=== PATIENT | male | born 1935 | race Caucasian/White ===

== ENCOUNTER 2020-12-18 02:41 | Inpatient (IN) | payer OTHER, MEDICARE ==
[2020-12-18] VITALS (9 sets, daily range): BP systolic 150–218; BP diastolic 62–99
[~2020-12-18] VITALS: Ht 165.1 cm; Wt 61.1 kg
[2020-12-18 05:22] LABS: HEMATOCRIT 26.8 % (42.0-52.0); HEMOGLOBIN 9.1 gm/dL (14.0-18.0); MCH 34.4 pg (26.0-34.0); MCHC 33.8 g/dL (28.0-37.0); MCV 101.8 fL (80.0-100.0); RBC 2.63 mil/uL (4.50-6.00); RDW 16.9 % (10.5-14.5); WBC 10.4 thou/uL (4.0-11.0)
[2020-12-18 05:24] LABS: CREATININE 3.7 mg/dL (0.7-1.3); POTASSIUM 5.5 mmol/L (3.5-5.1)
[2020-12-18 05:29] LABS: ALBUMIN 2.9 g/dL (3.4-5.0); TOTAL BILIRUBIN 0.8 mg/dL (0.2-1.0)
[2020-12-18 05:30] LABS: INR 1.01
[2020-12-18 05:46] LABS: CHOLESTEROL 125 mg/dL (<200); HDL CHOLESTEROL 74 mg/dL (>40); LDL CHOLESTEROL 42 mg/dL (<100); TC:HDL 1.7 Ratio (Not establshd); TRIGLYCERIDE 45 mg/dL (<150); VLDL 9 mg/dL (<40)
[2020-12-18 05:50] LABS: SERUM ASSESSMENT Clear
--- NOTE | 2020-12-18 08:41 | NUR ---
PT ADMITTED TO ROOM 209, FROM [facility] FOR NSTEMI AND CHF, PT IS AWAKE, ALERT AND ORIENTEDX4, DENIES CP, VERY SOB WITH ACTIVITY, HOB ELEVATED AT ALL TIME, SR ON TELE, ADMISSION ASSESSMENT, HX AND EDUCATION COMPLETED, ASSESSMENTS CHARTED, BP ELEVATED, METOPROLOL GIVEN, OTHER VSS, ON 3L NC O2SAT AT 100% NO EVENTS PASSED ON REPORT TO DAY NURSE
--- NOTE | 2020-12-18 15:00 | 2DMMODE ---
[facility] [address] [place] [address] 2 D/M-MODE ECHOCARDIOGRAM Name: SHIVA BARRON Room #: 209-P ADM IN M.R.#: [id number] Admission: 12/18/20 Attend Phys: Ricardo Preston MD Discharge: Date of : 34 Report #: [id number] THIS REPORT FOR: cc: Tomer Silverio MD, Brian MD Lammoglia, Francisco J. MD ~ APPROVED REPORT Study performed: 12/18/2020 13:04:05 EXAM: Comprehensive 2D, Doppler, and color-flow Echocardiogram Patient Location: Bedside Room #: 209 Status: routine BSA: 1.71 HR: 74 bpm BP: 179/86 mmHg Rhythm: NSR Other Information Study Quality: Technically Limited Indications Congestive Heart Failure COPD Cardiomyopathy Hypertension/HDD 2D Dimensions IVC: 2545.00 mm Volumes Left Atrial Volume (Systole) Single Plane 4CH: 61.38 mL Single Plane 2CH: 74.50 mL Aortic Valve AoV Peak Domingo.: 1.97 m/s AO Peak Gr.: 15.57 mmHg LVOT Max P.81 mmHg LVOT Max V: 0.98 m/s Mitral Valve E/A Ratio: 0.5 MV Decel. Time: 348.36 ms MV E Max Domingo.: 0.58 m/s [facility] [address] [place] [address] 2 D/M-MODE ECHOCARDIOGRAM Name: ANDERSONSHIVA Holly Room #: 209-P ADM IN M.R.#: [id number] Admission: 12/18/20 Attend Phys: Ricardo Preston MD Discharge: Date of : 34 Report #: [id number] MV A Domingo.: 1.09 m/s MV PHT: 101.02 ms IVRT: 161.48 ms Pulmonary Valve PV Peak Domingo.: 1.06 m/s PV Peak Gr.: 4.47 mmHg Pulmonary Vein P Vein S: 0.44 m/s P Vein A: 0.37 m/s P Vein D: 0.36 m/s P Vein A Dur.: 110.7 msec P Vein S/D Ratio: 1.22 Left Ventricle Left ventricle is at the upper limits of normal. There is global hypokinesis of the left ventricle. There is normal left ventricular wall thickness. Left ventricular systolic function is mild to moderately decreased. LVEF is 40%. This study is not technically sufficient to allow evaluation of the LV diastolic function. Right Ventricle The right ventricle is normal size. The right ventricular systolic function is normal. Atria Left atrium is dilated. Right atrium is dilated. Aortic Valve The aortic valve is normal in structure. The Aortic valve is sclerotic. Trace aortic regurgitation. There is no aortic valvular stenosis. Mitral Valve The mitral valve is normal in structure. Mild to moderate mitral regurgitation. No evidence of mitral valve stenosis. Tricuspid Valve The tricuspid valve is normal in structure. Mild tricuspid regurgitation. Unable to assess PA pressure. Pulmonic Valve The pulmonary valve is normal in structure. There is no pulmonic valvular regurgitation. Great Vessels The aortic root is normal in size. IVC is dilated. [facility] [address] [address] 2 D/M-MODE ECHOCARDIOGRAM Name: SHIVA BARRON Holly Room #: 209-P [facility] IN [facility]#: [id number] Admission: 12/18/20 Attend Phys: Ricardo Preston MD Discharge: Date of : 34 Report #: [id number] Pericardium There is no pericardial effusion. <Conclusion> Left ventricle is at the upper limits of normal. There is global hypokinesis of the left ventricle. LVEF is 40%. The right ventricle is normal size. Left atrium is dilated. Right atrium is dilated. The aortic valve is normal in structure. The Aortic valve is sclerotic. Trace aortic regurgitation. The mitral valve is normal in structure. Mild to moderate mitral regurgitation. The tricuspid valve is normal in structure. The pulmonary valve is normal in structure. The aortic root is normal in size. There is no pericardial effusion. <ELECTRONICALLY SIGNED> By: Seun Starkey MD 12/18/20 1500 1500 Cristina Starkey MD /INF
--- NOTE | 2020-12-18 18:26 | NUR ---
PT IS AXOX4, PLEASANT; VS SBP 170-180s, AFEBRILE, SR ON THE MONITOR. DR KEE CONSULTED. RECEIVED PT ON HEPARIN GTT AT 12.3U/KG/HR. PT HAS BEEN EDEMATOUS BLE AND LUE. CONTINUES TO BE ORTHOPNIC. CARDIOLOGY CONSULTED. ECHO COMPLETED THIS AM. POC IS TO CONTINUE TO MONITOR VSS; BP CONTINUED TO BE ELEVATED THROUGHOUT THE DAY. DR THOMPSON CONSULTED FOR RX CLONIDINE. HEPARIN GTT D/C. FALL PRECAUTIONS IN PLACE. CALL LIGHT AND NEEDS WITHIN REACH. NO CONCERNS THIS TIME.
[2020-12-19 00:04] VITALS: BP 185/90
[2020-12-19 05:09] LABS: HEMATOCRIT 22.8 % (42.0-52.0); HEMOGLOBIN 7.7 gm/dL (14.0-18.0); MCH 34.2 pg (26.0-34.0); MCHC 33.9 g/dL (28.0-37.0); RBC 2.26 mil/uL (4.50-6.00); RDW 16.4 % (10.5-14.5); WBC 9.3 thou/uL (4.0-11.0)
[2020-12-19 05:50] VITALS: BP 148/61
[2020-12-19 05:55] LABS: CALCIUM 7.9 mg/dL (8.5-10.1); POTASSIUM 5.1 mmol/L (3.5-5.1)
[2020-12-19 07:40] VITALS: BP 153/62
--- NOTE | 2020-12-19 10:11 | NUR ---
Assumed care of pt this AM. Pt is A&O x4, denies any chest pain. Received pt on 3L NC, down to 2L with no reports of increased SOA. Pt is SR w/ 1AVB on the monitor. Given medications as ordered with attn to controlling BP. Nurse to collect stool sample for occult bld if pt able to give specimen today. Will continue to assess pts needs throughout the day.
[2020-12-19 11:00] VITALS: BP 111/45
[2020-12-19 15:26] VITALS: BP 155/63
[2020-12-19 19:21] VITALS: BP 130/50
[2020-12-20] VITALS: BP 148/66
--- NOTE | 2020-12-20 02:24 | NUR ---
TODAY THIS PT HAS BEEN NSR ON THE HEART MONITOR IN THE 60S WITH NO STATED PAIN AND STABLE VS. HE HAS BEEN ASLEEP FOR MOST OF THE NIGHT WHILE USING THE URINAL AT THE BEDSIDE. HE HAS HIS HEARING AIDS CHARGING AT THE MOMENT.
[2020-12-20 02:39] LABS: HEMATOCRIT 21.2 % (42.0-52.0); HEMOGLOBIN 7.1 gm/dL (14.0-18.0); MCH 33.7 pg (26.0-34.0); MCHC 33.5 g/dL (28.0-37.0); MCV 100.7 fL (80.0-100.0); RBC 2.11 mil/uL (4.50-6.00); RDW 16.3 % (10.5-14.5); WBC 6.3 thou/uL (4.0-11.0)
[2020-12-20 03:10] LABS: CALCIUM 7.7 mg/dL (8.5-10.1); CREATININE 4.3 mg/dL (0.7-1.3); POTASSIUM 5.2 mmol/L (3.5-5.1)
[2020-12-20 05:50] VITALS: BP 150/82
[2020-12-20 08:10] VITALS: BP 170/64
[2020-12-20 12:00] VITALS: BP 119/64
--- NOTE | 2020-12-20 12:14 | EKG ---
[address] [place] [address] ELECTROCARDIOGRAM REPORT Name: SHIVA BARRON Room #: 209-[facility] IN [facility]#: [id number] Admission: 12/18/20 Attend Phys: Ricardo Preston MD Discharge: Date of : 34 Report #: [id number] [facility] Test Date: 2020-12-18 Test Time: 08:37:02 Pat Name: SHIVA BARRON Department: Room: 209 Gender: M Community Mental Health Worker: BLOSSOM : 1935 Requested By: Ricardo Preston Order Number: [id number] MD: Jose Bartlett Measurements Intervals [place] Rate: 72 P: 31 ID: 188 QRS: -31 QRSD: 126 T: -18 QT: 419 QTc: 459 Interpretive Statements Sinus rhythm Poor R wave progression Nonspecific intraventricular conduction delay Compared to ECG 12/18/2020 08:34:10 No significant changes found Electronically Signed On 12-20-2020 12:14:33 CDT by Jose Bartlett [email or web address] <ELECTRONICALLY SIGNED> By: Jose Bartlett MD, [facility] 12/20/20 1214 0837 0837 Jose Bartlett MD, [facility] /EPI
--- NOTE | 2020-12-20 12:14 | EKG ---
[address] [place] [address] ELECTROCARDIOGRAM REPORT Name: SHIVA BARRON Room #: 209-[facility] IN [facility].#: [id number] Admission: 12/18/20 Attend Phys: Ricardo Preston MD Discharge: Date of : 34 Report #: [id number] [facility] Test Date: 2020-12-18 Test Time: 08:34:10 Pat Name: SHIVA GOLDMANANDERSON Department: Room: 209 Gender: M Store Protection Specialist: BLOSSOM : 1935 Requested By: Deedee Delgado Order Number: [id number] MD: Jose Bartlett Measurements Intervals [place] Rate: 73 P: 32 GA: 187 QRS: -31 QRSD: 129 T: -15 QT: 422 QTc: 465 Interpretive Statements Sinus rhythm Poor R wave progression Nonspecific T wave abnormality Nonspecific intraventricular conduction delay No previous ECG available for comparison Electronically Signed On 12-20-2020 12:14:03 CDT by Jose Bartlett [email or web address] <ELECTRONICALLY SIGNED> By: Jose Bartlett MD, [facility] 12/20/20 1214 3 3 Jose Bartlett MD, [facility] /EPI
[2020-12-20 16:20] VITALS: BP 149/51
--- NOTE | 2020-12-20 17:30 | NUR ---
Met with patient who resides in independent home with . Patient reports ramp entry to back of home. 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 He has home oxygen via [employer] [facility] at 3 Liters. Patients with prec sx on legs and macular degeration. He reports she cannot see well. He drives but short distances. He reports can care for self while he is in hospital. Has a hx of for [facility] health care. Patient plans home independently. His son lives in area and helps parent when he is able but he also runs a business. [facility] following
[2020-12-20 19:57] VITALS: BP 150/61
[2020-12-20] MEDS ORDERED: IRBESARTAN300 MG PO (21:55)
[2020-12-20] MEDS ORDERED: ZOCOR 20 MG TAB20 M1 PO (21:56)
[2020-12-20] MEDS ORDERED: CARVEDILOL25 MG PO (21:56)
[2020-12-20] MEDS ORDERED: PROAIR HFA8.5 GM INH (21:57)
[2020-12-20] MEDS ORDERED: ADVAIR 250-501 EACH INH (21:57)
[2020-12-20] MEDS ORDERED: COZAAR 25 MG TA25 M1 PO (21:58)
[2020-12-20] MEDS ORDERED: ALLOPURINOL 10100 M3 PO (21:58)
[2020-12-20] MEDS ORDERED: HYDRALAZINE 5050 MG PO (22:00)
[2020-12-21 04:20] LABS: HEMATOCRIT 23.3 % (42.0-52.0); HEMOGLOBIN 7.9 gm/dL (14.0-18.0); MCH 34.5 pg (26.0-34.0); MCHC 34.1 g/dL (28.0-37.0); MCV 101.2 fL (80.0-100.0); RBC 2.3 mil/uL (4.50-6.00); RDW 16.2 % (10.5-14.5); WBC 6.6 thou/uL (4.0-11.0)
[2020-12-21 04:50] VITALS: BP 145/68
[2020-12-21 05:03] LABS: CALCIUM 8.2 mg/dL (8.5-10.1); POTASSIUM 5.7 mmol/L (3.5-5.1)
[2020-12-21 07:55] VITALS: BP 178/77
--- NOTE | 2020-12-21 08:43 | NUR ---
UPON SHIFT ASSESSMENT, PT AOX4, HARD OF HEARING, HEARING AIDES IN PLACE. PT DENIES PAIN. PT REPORTS SOB WITH EXERTION AND INTERMITTENTLY AT REST WHILE ON 3L O2 VIA NC, NO DESATURATIONS NOTED. PT TOLERATING PO INTAKE OF FLUIDS AND HEART HEALTHY, 2GM SODIUM DIET WITHOUT ISSUE. PT WITHOUT NAUSEA OR EMESIS. PT VOIDING PER URINAL, AMBULATES WITH X1 ASSIST TO CHAIR AND BATHROOM. FREQUENT REPOSITIONING ENCOURAGED WHILE IN BED, PT NOTED TO SHIFT INDEPENDENTLY. SENSATION INTACT, CAPILLARY REFILL LESS THAN 3SEC, PERIPHERAL PULSES PALPABLE IN BUE, FAINT IN BLE. +1 PITTING EDEMA NOTED TO RLE. +3 PITTING EDEMA NOTED TO LLE. PT ENCOURAGED TO NOTIFY STAFF FOR ALL NEEDS, CALL LIGHT WITHIN REACH, BED ALARM ON, BED LOCKED IN LOWEST POSITION, FREQUENT MONITORING WILL CONTINUE.
[2020-12-21 12:10] VITALS: BP 133/61
[2020-12-21 16:20] VITALS: BP 141/60
[2020-12-21 19:30] VITALS: BP 133/52
[2020-12-22] VITALS (8 sets, daily range): BP systolic 121–169; BP diastolic 52–82
[2020-12-22 03:35] LABS: WBC 5.1 thou/uL (4.0-11.0)
[2020-12-22 03:39] LABS: HEMOGLOBIN 6.9 gm/dL (14.0-18.0); MCH 34.5 pg (26.0-34.0); MCHC 34.2 g/dL (28.0-37.0); MCV 100.7 fL (80.0-100.0); RBC 1.99 mil/uL (4.50-6.00)
[2020-12-22 03:50] LABS: CALCIUM 7.9 mg/dL (8.5-10.1); CREATININE 5.2 mg/dL (0.7-1.3); POTASSIUM 5.3 mmol/L (3.5-5.1)
--- NOTE | 2020-12-22 05:29 | NUR ---
ASSUMED PT CARE AT 0100, PT IS SLEEPING, DENIES PAIN OR SOB, REMAINS ON 3L NC, ASSESSMENTS CHARTED, HGB 6.9 THIS AM, SENIOR PARTNER NOTIFIED, NO NEW ORDERS RECEIVED AT THIS TIME, WILL PASS ON REPORT, NO NEEDS AT THIS TIME WILL CONTINUE TO MONITOR
[2020-12-22 12:14] LABS: % SATURATION 30 % (20-39); IRON 51 ug/dL (65-175); TIBC 172 ug/dL (250-450)
[2020-12-23 04:14] VITALS: BP 148/61
[2020-12-23 04:23] LABS: HEMOGLOBIN 7.9 gm/dL (14.0-18.0); MCH 33.9 pg (26.0-34.0); MCHC 34.2 g/dL (28.0-37.0); MCV 99.1 fL (80.0-100.0); RBC 2.32 mil/uL (4.50-6.00); RDW 16.8 % (10.5-14.5); WBC 5.1 thou/uL (4.0-11.0)
[2020-12-23 04:35] LABS: CALCIUM 7.9 mg/dL (8.5-10.1); CREATININE 5.4 mg/dL (0.7-1.3); POTASSIUM 5.5 mmol/L (3.5-5.1)
--- NOTE | 2020-12-23 04:36 | NUR ---
RECEIVED PATIENT ALERT AND ORIENTED X4.ON NASAL CANNULA AT 3LPM, SATURATING WELL.SINUS RYTHM ON THE MONITOR.ON ONGOING 1 UNIT OF PRBC TRANSFUSION COMPLETED AT 8PM, NO TRANSFUSION REACTION NOTED.ALL NEEDS ATTENDED.NO COMPLAINTS OF PAIN THROUGHOUT THE SHIFT.
[2020-12-23 05:50] VITALS: BP 145/61
[2020-12-23 08:00] VITALS: BP 178/75
[2020-12-23 12:00] VITALS: BP 147/66
[2020-12-23 16:00] VITALS: BP 159/63
[2020-12-23 20:40] VITALS: BP 169/81
[2020-12-24 03:17] VITALS: BP 163/90
[2020-12-24 05:34] LABS: HEMATOCRIT 25.5 % (42.0-52.0); HEMOGLOBIN 8.6 gm/dL (14.0-18.0); MCH 33.5 pg (26.0-34.0); MCHC 33.8 g/dL (28.0-37.0); MCV 99.1 fL (80.0-100.0); RBC 2.57 mil/uL (4.50-6.00); RDW 16.2 % (10.5-14.5); WBC 5.9 thou/uL (4.0-11.0)
--- NOTE | 2020-12-24 05:43 | NUR ---
ASSUME CARE 1900. PT/VITALS STABLE. BP RUNSHIGH AT TIMES. PT ON HYDRALAZINE TO MANAGE BP. MODERATE TOLERANCE TO ACTIVITY. ASSESSMENTS CHRTED. PROGRESSING MODERATELY WITH POC. PLAN IS FOR POSSIBLE EGD TODAY TO INVESTIGATE FURTHER BLEEDING. URINE OUTPUT VERY LOW. COMMUNICTED TO PIPER INSTALLER. STARTED ON NS AT 75ML/HR X 1 BAG. WILL CONTINUE TO MONITOR AND FOLLOW WITH POC
[2020-12-24 06:31] LABS: ALBUMIN 2.4 g/dL (3.4-5.0); CALCIUM 7.6 mg/dL (8.5-10.1); PHOSPHORUS 4.7 mg/dL (2.5-4.9); POTASSIUM 4.9 mmol/L (3.5-5.1)
[2020-12-24 08:05] VITALS: BP 194/113
[2020-12-24 11:05] VITALS: BP 106/57
[2020-12-24 13:18] LABS: BE(vivo) -6.7 mmol/L (-2 to +3); HCO3 17.9 mmol/L (22.0-26.0); PCO2 32.1 mmHg (35.0-45.0); pH 7.363 (7.360-7.450); sO2 94.6 % (92.0-98.0)
[2020-12-24 14:07] VITALS: BP 137/65
[2020-12-24 15:30] VITALS: BP 132/58
--- NOTE | 2020-12-24 17:53 | NUR ---
ASSUMED CARE SHIFT CHANGE. UPON RECEIVING PT, PT WAS IN RESP DISTRESS WITH LUNGS SOUNDING WET. OPTICIAN NOTIFIED ORDERS RECEIVED. LASIX GIVEN WITH RELIEF, LASIX GTT CONTINUES PER ORDERS. PT BREATHING MUCH BETTER AND PT IS COMFORTABLE. PULM CONSULTED REFER TO NOTE. PT REMAINS ON 4L O2. VSS- BP ELEVATED THIS AM, STABLE NOW. FAMILY UPDATED ON POC. CESAR PLACED WITH GOOD URINE OUTPUT. PT SEEN BY SPEECH, DIET ALTERED. PT DENIES CURRENT NEEDS. CONT POC, WILL PASS REPORT TO NOC RN.
[2020-12-24 20:00] VITALS: BP 151/61
[2020-12-25 03:42] LABS: HEMATOCRIT 25.4 % (42.0-52.0); HEMOGLOBIN 8.7 gm/dL (14.0-18.0); MCH 33.7 pg (26.0-34.0); MCHC 34.2 g/dL (28.0-37.0); MCV 98.7 fL (80.0-100.0); RBC 2.57 mil/uL (4.50-6.00); RDW 15.8 % (10.5-14.5); WBC 6.3 thou/uL (4.0-11.0)
[2020-12-25 05:42] LABS: ALBUMIN 2.5 g/dL (3.4-5.0); CALCIUM 8.4 mg/dL (8.5-10.1); CREATININE 5.4 mg/dL (0.7-1.3); PHOSPHORUS 4.3 mg/dL (2.5-4.9); POTASSIUM 4.9 mmol/L (3.5-5.1)
[2020-12-25 05:55] VITALS: BP 151/89
[2020-12-25 07:19] VITALS: BP 141/82
--- NOTE | 2020-12-25 07:39 | NUR ---
Pt slept well this shift. Oriented but forgetful. Hard of hearing. Lasix drip per emar. Albert for voiding. Fall precaution in place. [place] thick liquid. Call light within reach. Nursing to continue to monitor.
--- NOTE | 2020-12-25 09:38 | NUR ---
Assess for length of stay. Advanced age 85, admit with CHF, fluid overload, cardiomyopathy. CKD and renal is managing diuresis with iv lasix. Wt down [address] follows due to aspiration risk and pt requires modified diet with swallow precautions. Intake is 90-100% meals. Physician has indicated protein calorie malnutrition: RD defer. Low nutrition risk.
[2020-12-25 11:05] VITALS: BP 158/74
--- NOTE | 2020-12-25 12:36 | NUR ---
Assumed care of pt this AM. Pt is A&O x4. SR on the monitor. Currently on 4L NC. Still on Lasix drip w/ shirley in place. Will continue to monitor pt needs throuhgout the day.
[2020-12-25 15:06] VITALS: BP 113/60
--- NOTE | 2020-12-25 16:30 | NUR ---
Ana not stable for discharge. Discussed with patient HH at tx. he is agreeable to referral of [facility] which he has used in past.
[2020-12-25 19:49] VITALS: BP 137/69
[2020-12-26 02:54] LABS: ALBUMIN 2.5 g/dL (3.4-5.0); CALCIUM 8.2 mg/dL (8.5-10.1); CREATININE 5.7 mg/dL (0.7-1.3); PHOSPHORUS 4.9 mg/dL (2.5-4.9); POTASSIUM 4.6 mmol/L (3.5-5.1)
--- NOTE | 2020-12-26 03:29 | NUR ---
RECIEVED THE PATIENT ALERT AND ORIENTEDX4.ON OXYGEN SUPPORT VIA NASAL CANNULA SATURATING WELL.ON LASIX INFUSION AT 20MG/HR.NOT IN PAIN OR DISTRESS.ALL NEEDS ATTENDED.FOR CONTINOUS MONITORING AND CARE.
[2020-12-26 04:50] VITALS: BP 136/69
[2020-12-26 07:22] VITALS: BP 134/82
[2020-12-26 11:02] VITALS: BP 114/63
[2020-12-26 15:03] VITALS: BP 95/53
--- NOTE | 2020-12-26 18:20 | NUR ---
Assumed care of pt this AM. Pt is A&O x4, 3L NC which is baseline. Pt remains on Lasix gtt @ 10mL/hr (20mg). Pt in fluid deficit at shift change. Pt is up x1 w/ walker & gait belt. SA BBB on monitor. Pt possibily d/c'ing tomorrow w/ HH if nephro gives the okay to d/c gtt.
[2020-12-26 19:26] VITALS: BP 115/68
--- NOTE | 2020-12-27 02:39 | NUR ---
PT IS ALERT AND ORIENTED X4. PT IS CONGESTED WITH A COUGH NOTED. LUNGS ARE COARSE TO CRACKLES. ON A LASIX DRIP INFUSING WITHOUT DIFFICULTY. ON 3 LITERS NASAL CANULA.CESAR TO DD . PT WAS UP TO THE CHAIR UPON ARIVAL TO UNIT. ASKING IF HE IS GOING TO REHAB AT SOME POINT. ONGOING NURISNG CARE AND CALL LIGHT WITHIN REACH IF NEEDS ASSISTANCE PER NURSING
[2020-12-27 04:34] VITALS: BP 120/76
[2020-12-27 04:47] LABS: HEMATOCRIT 25.2 % (42.0-52.0); HEMOGLOBIN 8.8 gm/dL (14.0-18.0); MCH 34.1 pg (26.0-34.0); MCHC 34.7 g/dL (28.0-37.0); MCV 98.4 fL (80.0-100.0); RBC 2.56 mil/uL (4.50-6.00); RDW 15.3 % (10.5-14.5); WBC 8.7 thou/uL (4.0-11.0)
[2020-12-27 05:04] LABS: ALBUMIN 2.3 g/dL (3.4-5.0); CALCIUM 7.8 mg/dL (8.5-10.1); CREATININE 6.2 mg/dL (0.7-1.3); PHOSPHORUS 5.4 mg/dL (2.5-4.9); POTASSIUM 4.8 mmol/L (3.5-5.1)
[2020-12-27 07:30] VITALS: BP 132/80
[2020-12-27 11:30] VITALS: BP 118/61
[2020-12-27] MEDS ORDERED: IPRAT-ALBUT 0.5-3 ML INH (15:26)
[2020-12-27] MEDS ORDERED: HYDRALAZINE 5050 MG PO (15:26)
[2020-12-27] MEDS ORDERED: CLONIDINE HCL0.3 M3 PO (15:26)
[2020-12-27] MEDS ORDERED: BAYER CHEWABLE81 MG PO (15:27)
[2020-12-27] MEDS ORDERED: IMDUR 60 MG TAB60 M1 PO (15:27)
[2020-12-27] MEDS ORDERED: PREDNISONE 10 M10 M1 PO (15:28)
[2020-12-27] MEDS ORDERED: TORSEMIDE20 MG PO (15:28)
[2020-12-27] MEDS ORDERED: VELTASSA8.4 GM PO (15:28)
[2020-12-27] MEDS ORDERED: PROTONIX40 M2 PO (15:29)
[2020-12-27 15:30] VITALS: BP 123/73
--- NOTE | 2020-12-27 15:49 | NUR ---
Pt and son expressed concerns to the care team about pt going home with [facility] today and would like to consider acute rehab stay. [facility] eval requested along with therapy evals. [facility] has accepted the pt and they have a bed for him this evening. All parties are agreeable. Dc to acute rehab. Pt will likely need hh referral when dc'd home from rehab.[facility] cm to follow.
[2020-12-27 19:46] VITALS: BP 114/56
--- NOTE | 2020-12-27 19:54 | NUR ---
Transfer to rehab note( end shift note) Uneventful shift , pt discharge is adequate for rehab, pt stated verbal understanding of the overall process. Stable, transfered by [facility] by staff to rehab.
== END 2020-12-27 20:29 | DRG 280 ==
LOC: 2N 02:41
PROVIDERS: Hospitalist; Internal Medicine Nephrology; Internal Medicine Pulmonary Disease; Nurse Practitioner; Nurse Practitioner Family; ADMIT Hospitalist; ATTEND Hospitalist
PROC: 30233N1 Transfusion of Nonautologous Red Blood Cells into Peripheral Vein, Percutaneous Approach (ICD-10-PCS; principal; 2020-12-22)
DX: I21.4 Non-ST elevation (NSTEMI) myocardial infarction (principal); I50.23 Acute on chronic systolic (congestive) heart failure; N17.9 Acute kidney failure, unspecified; I13.0 Hypertensive heart and chronic kidney disease with heart failure and stage 1 through stage 4 chronic kidney disease, or unspecified chronic kidney disease; N18.5 Chronic kidney disease, stage 5; E46 Unspecified protein-calorie malnutrition; J81.1 Chronic pulmonary edema; I25.5 Ischemic cardiomyopathy; I25.10 Atherosclerotic heart disease of native coronary artery without angina pectoris; E78.5 Hyperlipidemia, unspecified; M10.9 Gout, unspecified; M19.90 Unspecified osteoarthritis, unspecified site; J44.9 Chronic obstructive pulmonary disease, unspecified; E87.5 Hyperkalemia; I48.0 Paroxysmal atrial fibrillation; D69.6 Thrombocytopenia, unspecified; D64.9 Anemia, unspecified; R53.81 Other malaise; Z20.822 Contact with and (suspected) exposure to COVID-19; I25.2 Old myocardial infarction; Z95.5 Presence of coronary angioplasty implant and graft; Z98.49 Cataract extraction status, unspecified eye; Z87.891 Personal history of nicotine dependence; Z85.038 Personal history of other malignant neoplasm of large intestine; Z82.49 Family history of ischemic heart disease and other diseases of the circulatory system; Z99.81 Dependence on supplemental oxygen; Z79.82 Long term (current) use of aspirin; Z79.899 Other long term (current) drug therapy; Z68.22 Body mass index [BMI] 22.0-22.9, adult
CPT/HCPCS: 10081

== ENCOUNTER 2020-12-27 15:38 | Inpatient (IN) | payer OTHER, MEDICARE ==
[~2020-12-27] VITALS: Ht 165.1 cm; Wt 60.8 kg
[~2020-12-27 15:38] MED LIST: ADVAIR 250-501 EACH INH; ALLOPURINOL 10100 M3 PO; BAYER CHEWABLE81 MG PO; CARVEDILOL25 MG PO; CLONIDINE HCL0.3 M3 PO; COZAAR 25 MG TA25 M1 PO; HYDRALAZINE 5050 MG PO; IMDUR 60 MG TAB60 M1 PO; IPRAT-ALBUT 0.5-3 ML INH; IRBESARTAN300 MG PO; PREDNISONE 10 M10 M1 PO; PROAIR HFA8.5 GM INH; PROTONIX40 M2 PO; TORSEMIDE20 MG PO; VELTASSA8.4 GM PO; ZOCOR 20 MG TAB20 M1 PO
[2020-12-27 20:33] VITALS: BP 122/66
--- NOTE | 2020-12-27 23:54 | NUR ---
PT ADMITTED TO [facility] VIA W/C AT 2024 FROM 2N. PT ALERT AND ORIENTED X 4. ADMISSION HISTORY AND ASSESSMENT COMPLETED. CONSENTS SIGNED. PT ORIENTED TO ROOM AND USE OF CALL TYLER. CESAR PATENT DRAINING ADEQUATE AMTS CLEAR YELLOW URINE. PT DENIES PAIN OR DISCOMFORT. PT APPEARS TO BE SLEEPING ON HOURLY ROUNDS.
[2020-12-28 05:36] VITALS: BP 131/67
[2020-12-28 06:22] LABS: HEMATOCRIT 24.9 % (42.0-52.0); HEMOGLOBIN 8.3 gm/dL (14.0-18.0); MCH 32.9 pg (26.0-34.0); MCHC 33.6 g/dL (28.0-37.0); MCV 97.9 fL (80.0-100.0); RBC 2.54 mil/uL (4.50-6.00); RDW 16.2 % (10.5-14.5); WBC 6.4 thou/uL (4.0-11.0)
[2020-12-28 06:47] LABS: ALBUMIN 2.4 g/dL (3.4-5.0); CALCIUM 7.5 mg/dL (8.5-10.1); CREATININE 6.9 mg/dL (0.7-1.3); PHOSPHORUS 5.6 mg/dL (2.5-4.9)
[2020-12-28 07:21] LABS: FOLIC ACID 9.4 ng/mL (8.6-58.9)
[2020-12-28 08:18] VITALS: BP 143/72
[2020-12-28 10:58] LABS: ABSOLUTE NEUTROPHILS 5.1 thou/uL (1.4-8.2); BASOPHILS 0.1 % (0.0-2.0); EOSINOPHILS 0.2 % (0.0-3.0); HEMATOCRIT 25.3 % (42.0-52.0); HEMOGLOBIN 8.4 gm/dL (14.0-18.0); LYMPHOCYTES 6.1 % (24.0-44.0); MCH 33.1 pg (26.0-34.0); MCHC 33.4 g/dL (28.0-37.0); MCV 99.2 fL (80.0-100.0); MONOCYTES 8.1 % (1.0-8.0); PLATELET COUNT 143 thou/uL (150-400); POLYS 85.5 % (36.0-66.0); RBC 2.55 mil/uL (4.50-6.00); RDW 15.8 % (10.5-14.5)
[2020-12-28 11:46] LABS: ALBUMIN 2.4 g/dL (3.4-5.0); CALCIUM 7.5 mg/dL (8.5-10.1); CREATININE 6.9 mg/dL (0.7-1.3); MAGNESIUM 1.6 mg/dL (1.8-2.4); POTASSIUM 5.1 mmol/L (3.5-5.1); TOTAL BILIRUBIN 0.2 mg/dL (0.2-1.0)
--- NOTE | 2020-12-28 15:17 | NUR ---
PATIENT CARE ASSUMED AT 0700 - ALERT AND ORIENTED TO SURROUNDINGS. HAS PERIODS OF FORGETFULNESS - DID NOT REMEMBER CESAR BEING D/C - QUESTIONED NOT GETTING MEDICATION AND WHEN APPROACHED HAD FORGOTTEN HE ASKED. PATIENT HAS CESAR D/C EARLIER IN DAY AT 10:53. MEDICATIONS TOLERATED WELL - SPEECH THERAPY HAD WORKED WITH PATIENT AND DETERMINED SWALLOWING HAD IMPROVED. CHANGED DIET TO MECHANICAL ALTERED CHOPPED - REMAINS ON NECTAR THICK LIQUIDS. SWALLOW TEST BEING DONE WEDNESDAY TO DTERMINE OTHERWISE. PATIENT REMAINS ON OXYGEN 2L NC. REMAINS ON 1750 FLUID RESTRICTION. HAS HAD 1280 SO FAR ACCORDING TO CALCULATIONS. WILL CONTINUE TO MONITOR PATIENT FOR SAFETY AND ANY CONCERNS OR NEEDS AND ADDRESS ACCORDINGLY.
--- NOTE | 2020-12-29 04:00 | NUR ---
RECEIVED CARE OF THIS PATIENT AT 1900. PATIENT ALERT AND ORIENTED X4 BUT FORGETFUL. UP WITH ASSIST OF ONE AND WALKER/GAIT BELT. REMAINS ON FLUID RESTRICTION. ON NECTAR THISK LIQUIDS. ACCUCHECK WAS 202, RECEIVED 4 UNITS LISPRO INSULIN. VOIDS LITTLE. SLEPT MOST OF NIGHT. DENIES PAIN.
[2020-12-29 07:15] VITALS: BP 156/58
[2020-12-29 07:15] LABS: ALBUMIN 2.4 g/dL (3.4-5.0); CALCIUM 7.3 mg/dL (8.5-10.1); CREATININE 7.2 mg/dL (0.7-1.3); PHOSPHORUS 6.1 mg/dL (2.5-4.9); POTASSIUM 4.6 mmol/L (3.5-5.1)
--- NOTE | 2020-12-29 16:41 | NUR ---
A/O, forgetful. Denied pain, no nausea or vomiting. got up to the bathroom with a walker and standby assist, tolerated well.
[2020-12-29 19:33] VITALS: BP 129/64
[2020-12-30 05:58] LABS: HEMATOCRIT 26.9 % (42.0-52.0); HEMOGLOBIN 9.1 gm/dL (14.0-18.0); MCH 33.4 pg (26.0-34.0); MCHC 33.8 g/dL (28.0-37.0); MCV 98.8 fL (80.0-100.0); PLATELET COUNT 163 thou/uL (150-400); RBC 2.72 mil/uL (4.50-6.00); RDW 15.8 % (10.5-14.5); WBC 6.5 thou/uL (4.0-11.0)
[2020-12-30 05:59] LABS: ALBUMIN 2.5 g/dL (3.4-5.0); CALCIUM 7.3 mg/dL (8.5-10.1); CREATININE 7.6 mg/dL (0.7-1.3); PHOSPHORUS 6.1 mg/dL (2.5-4.9); POTASSIUM 4.7 mmol/L (3.5-5.1)
[2020-12-30 06:27] VITALS: BP 157/68
--- NOTE | 2020-12-30 06:49 | NUR ---
ASSUME CARE 1900. PT/VITALS STABLE. BP RUNS SLIGHTLY HIGH/ON HYDRALAZINE TO STABILZE BP. DENEIS ANY PAIN. MODERATE TOLERANCE TO ACTIVITY. SOB NOTED WITH EXERTION. UP TO BATHROOM STB WITH WALKER. ASSESSMENT CHARTED. PROGRESSING SLOWLY WITH POC. CR/BUN CONTIUES TO RISE. PT STILL MAKING URINE BUT AT BORDERLINE. PLAN IS FOR PT TO STAY NPO UNTIL IR SEES PT FOR PLACEMENT ON DIALYSIS CATH. WILL CONTINUE TO MONITOR AND FOLLOW WITH POC
[2020-12-30 07:15] VITALS: BP 145/80
[2020-12-30 09:46] LABS: INR 1.04; PROTIME 11.3 Seconds (10.5-12.1)
--- NOTE | 2020-12-30 09:48 | NUR ---
Chart review. Tried to visit with bayron, unable to r/t he working with therapy. He lives home with is , 4 steps to enter and 12 steps inside. Son lives in area, help when he can, he works. He independent prior to admit hospital. manage own medication. has home oxygen from [facility] at 3 L/nc. He drives short distance, unable to drive r/t macular degeneration . [place]greeable to [place] if needed ([facility]).
[2020-12-30 14:13] VITALS: BP 150/70
[2020-12-30 14:48] LABS: METAMYELOCYTES 2 %
[2020-12-30 14:49] LABS: ANISOCYTOSIS 1+; OVALOCYTES FEW
[2020-12-30 16:41] VITALS: BP 129/69
[2020-12-30 18:55] VITALS: BP 134/65
--- NOTE | 2020-12-30 19:38 | NUR ---
PT RETURNED FROM IR VIA STRETCHER AT APPRO 17:00. VS COMPLETED Q 30 MINS X2. VSS. BP 120/60'S HR 60'S, AFEBRILE. PT DROWSY BUT ORIENTED X4. RCW TUNNELED CATH PLACED - SITE & DRESSING CLEAN, DRY AND INTACT. DIET ORDERED, DINNER TRAY REQUESTED. PT ATE DINNER WITHOUT N/V. RESTING IN BED, BED ALARM ON. CALL LIGHT IN REACH.
--- NOTE | 2020-12-31 00:10 | NUR ---
PT ALERT AND ORIENTED X 4. 02 ON AT 2L PER NC CONT. RIGHT CHEST CATHETER DRESSING INTACT WITH SMALL AMT BLOODY DRAINAGE. PT TAKES MEDS WITH NECTAR THICK LIQUIDS WITHOUT DIFFICULTY. BLOOD SUGAR 182 AT HS. INSULIN GIVEN ORDERED. PT DENIES PAIN OR DISCOMFORT. BED ALARM ON FOR SAFETY. PT APPEARS TO BE SLEEPING ON HOURLY ROUNDS.
[2020-12-31 06:01] LABS: ALBUMIN 2.4 g/dL (3.4-5.0); PHOSPHORUS 8.3 mg/dL (2.5-4.9)
[2020-12-31 07:20] VITALS: BP 131/52
--- NOTE | 2020-12-31 10:00 | NUR ---
PT ARRIVED TO ROOM AFTER WORKING WITH ST. PT PASSED VIDEO SWALLOW WITH NO ISSUES WITH ASPIRATION. PT ABLE TO TAKE MEDS WHOLE WITH THIN WATER. PT IS ON 3L NC SAT 97%. PT HAS TESSIO TO RT CHEST. PT GETTING DIALYSIS TODAY. PT DENIES ANY PAIN. PT INAJA. UP WITH WALKER WITH STAND-BY ASSIST. PT LUNGS CLEAR. PT ON FLUID RESTRICTION OF 1750ML.
--- NOTE | 2020-12-31 13:13 | NUR ---
1130 cm notified by nurse refinery operator reforming unit that he will need to be set up for dislaysis out in community. he lives in [facility] [place]. Got his site for dialysis.
[2020-12-31 19:34] VITALS: BP 133/67
--- NOTE | 2021-01-01 05:32 | NUR ---
ASSUME DPT CARE THIS EVENING. PT IS ALERT AND ORIENTED X4. PT IS ON 2L OF O2 VIA NC. PT HAS TERSIO TO THE R CHEST. PT HAS A PIV TO LFA WITH NO SIGN OF REDNESS. PT IS MARY'S IGLOO WITH HEARING AIDS ON THE BEDSIDE TABLE. PT IS ON FLUID RESTRICTION OF 1750ML. MEDS WERE GIVEN PER EMAR ORDER. PT DID NOT VERBALIZE ANY CONCERNS. WILL CONTINUE TO MONITOR.
[2021-01-01 06:14] VITALS: BP 151/68
[2021-01-01 06:45] LABS: ALBUMIN 2.4 g/dL (3.4-5.0); CALCIUM 7.1 mg/dL (8.5-10.1); PHOSPHORUS 6.4 mg/dL (2.6-4.7); POTASSIUM 4.3 mmol/L (3.5-5.1)
[2021-01-01 06:51] LABS: CREATININE 6.2 mg/dL (0.7-1.3)
[2021-01-01 07:15] VITALS: BP 151/64
--- NOTE | 2021-01-01 09:50 | NUR ---
PT LYING IN BED THIS AM. PT PLEASANT. PT VERY TAKOTNA, PT STATED HIS HEARING AIDS ARE NOT CHARGING VERY GOOD. PT LUNGS CLEAR. PT HAS TESSIO CATH TO RT CHEST. PT TOOK MEDS WHOLE WITH THIN WATER. PT DENIES ANY PAIN. PT HAS OXYGEN ON 2L NC AND TOLERATING WELL.
--- NOTE | 2021-01-01 10:53 | NUR ---
senior blue book left with bayron for resource outside of dc. referral to be sent to [facility].
[2021-01-01 16:00] VITALS: BP 160/83
--- NOTE | 2021-01-01 16:18 | NUR ---
FAXED REFERRAL TO [facility]. WILL CONFIRM WITH [facility]PAGE THAT THEY RECEIVE AND CAN ACCEPT PATIENT AT TIME OF D/C. NOTED PROBABLE D/C ON 01/07/21. [facility] P [phone]; FAX [phone] FAXED CLINICAL UPDATES TO [facility] WITH NOTATION OF PROBABLE D/C ON 01/07/21 [facility] P [phone]; FAX [phone]
--- NOTE | 2021-01-01 18:12 | NUR ---
PT TOLERATED HD VIA TESSIO TODAY, 500ML TAKEN AT THIS TIME AND ALSO HAD 500ML PULLED YESTERDAY. BP HOLDING AFTER DIALYSIS.
[2021-01-01 19:34] VITALS: BP 165/85
[2021-01-01 21:31] VITALS: BP 158/73
--- NOTE | 2021-01-02 03:07 | NUR ---
PATIENT AOX4 MAKES NEEDS KNOWN. PATIENT IS CONTINENT THIS SHIFT. PATIENT ON FLUID RESTRICTION. PATIENT AMBULATES WITH A WALKER WITH STEADY GAITS. PATIENT ON 2L OF OXYGEN NO SOA OR DISTRESS NOTED. PATIENT NEEDS MINIMUM ASSISTANCE WITH ADL, BED MOBILITY, TRANSFER AND TOILETING. PATIENT HAS A DIALYSIS TESSEO NO S/S OF INFECTION. FALL PRECAUTION IN PLACE. PATIENT IN BED ASLEEP AT THIS TIME BREATHING REGULAR AND UNLABOURED.
[2021-01-02 04:54] LABS: ALBUMIN 2.4 g/dL (3.4-5.0); CALCIUM 7.6 mg/dL (8.5-10.1); PHOSPHORUS 5.4 mg/dL (2.5-4.9); POTASSIUM 3.9 mmol/L (3.5-5.1)
[2021-01-02 06:01] VITALS: BP 182/86
[2021-01-02 08:00] VITALS: BP 140/72
[2021-01-02 08:07] LABS: HEP B SURFACE Ab(ANTI-HBS Reactive (()); HEPATITIS B SURFACE AG Negative (Negative)
[2021-01-02 12:47] VITALS: BP 105/50
--- NOTE | 2021-01-02 14:16 | NUR ---
ASSESSMENT CHARTED. PT ALERT AND ORIENTED. VSS. DENIED HAVING PAIN OR DISCOMFORT. UP IN THE CHAIR THIS SHIFT. EVALAUTED BY PT/OT. DIALYSIS SCHEDULED FOR THIS AFTERNOON.
[2021-01-02 19:48] VITALS: BP 158/75
--- NOTE | 2021-01-03 00:06 | NUR ---
PT ALERT AND ORIENTED X 4. UP IN RECLINER ALL EVENING. TRANSFERRED TO BED AT HS WITH ASSIST X 1. PT IMPULSIVE AT TIMES. REMINDED TO CALL FOR ASSISTANCE WHEN GETTING UP. RIGHT TESSIO DRESSING INTACT WITH SMALL AMT BLOODY DRAINAGE. PT TOOK HS MEDS WITH WATER WITHOUT DIFFICULTY. PT DENIES PAIN OR DISCOMFORT. BED ALARM ON FOR SAFETY. PT APPEARS TO BE SLEEPING ON HOURLY ROUNDS.
[2021-01-03 04:03] LABS: ALBUMIN 2.4 g/dL (3.4-5.0); CALCIUM 7.6 mg/dL (8.5-10.1); POTASSIUM 3.7 mmol/L (3.5-5.1)
[2021-01-03 04:04] LABS: CREATININE 2.8 mg/dL (0.7-1.3)
[2021-01-03 05:37] VITALS: BP 172/87
[2021-01-03 08:00] VITALS: BP 175/76
--- NOTE | 2021-01-03 09:54 | NUR ---
spoke with silvino at [facility], going to get ok from insurance and talk with Dr LAWTON and then he will be able to start hd on 01/08/21, will call back with chair time. He will be dialysis on . [facility] # [phone]/# [phone]
[2021-01-03 16:30] LABS: HEMATOCRIT 27.9 % (42.0-52.0); HEMOGLOBIN 9.2 gm/dL (14.0-18.0); MCH 32.7 pg (26.0-34.0); MCHC 32.9 g/dL (28.0-37.0); MCV 99.4 fL (80.0-100.0); RBC 2.8 mil/uL (4.50-6.00); RDW 16.7 % (10.5-14.5); WBC 9.4 thou/uL (4.0-11.0)
--- NOTE | 2021-01-03 17:46 | NUR ---
ASSUMED PATIENT CARE AT 0700 A/O X4. ON 2.5L/NC TOLERATED WELL. STANDBY ASSISTED. PROGRESSING TOWARDS POC GOALS.
[2021-01-03 19:38] VITALS: BP 139/67
--- NOTE | 2021-01-04 00:34 | NUR ---
PT ASSESSMENT COMPLETED AND VSS. MEDS GIVEN ORDERED AND WELL TOLERATED. FALL PRECAUTIONS IN PLACE. PT UP WATCHING TV EARLY DURING THE SHIFT. PT DENIES NEEDS. SLEEPING WELL. WILL CONTINUE TO MONTIOR FREQUENTLY.
[2021-01-04 06:39] LABS: ALBUMIN 2.3 g/dL (3.4-5.0); CALCIUM 7.5 mg/dL (8.5-10.1); POTASSIUM 3.7 mmol/L (3.5-5.1)
[2021-01-04 06:40] LABS: CREATININE 4.1 mg/dL (0.7-1.3)
[2021-01-04 08:00] VITALS: BP 159/66
--- NOTE | 2021-01-04 12:27 | NUR ---
Alert and orientated X 4. Calm, cooperative and compliant. Breath sounds clear. FIO2 per NC at 2 L. No s/o nasal flaring or retractions. Reg HR auscultated. Color pink with brisk capillary refill and palpable peripheral pulses. Active bowel sounds over soft, rounded abdomen. States he had BM yesterday. Sitting in room without s/o distress.
[2021-01-04 13:15] VITALS: BP 83/45
[2021-01-04 13:18] VITALS: BP 89/43
[2021-01-04 13:25] VITALS: BP 102/52
[2021-01-04 19:34] VITALS: BP 141/65
--- NOTE | 2021-01-05 02:06 | NUR ---
PT ASSESSMENT COMPLETED AND VSS. MEDS GIVEN ORDERED AND WELL TOLERATED. VSS. INSULIN GIVEN ORDERED. UP TO THE BATHROOM WITH ASST/GAIT/WALKER. VOIDING MODERATE AMOUNT OF YELLOW URINE. DIALYSIS ACCESS WNL. SAT WNL ON NC. SLEEPING WELL. WILL CONTINUE TO MONITOR FREQUENTLY.
[2021-01-05 08:18] VITALS: BP 151/72
--- NOTE | 2021-01-05 17:23 | NUR ---
ASSUMED CARE OF PT AT 0700 THIS MORNING. PT IS A/OX4 AND 1X ASST WITH GB. ASSESSMENTS NOTED IN CHART AND OTHERWISE UNREMARKABLE. FALL PRECAUTIONS ARE IN PLACE. CALL LIGHT AND OTHER NEEDS ARE IN REACH. MEDS AQND TX GIVEN NEEDED AND SCHEDULED. WILL MONITOR AND NOTE ANY CHANGES.
[2021-01-05 19:58] VITALS: BP 143/63
--- NOTE | 2021-01-06 02:39 | NUR ---
PT ASSESSMENT COMPLETED AND VSS. MEDS GIVEN ORDERED AND WELL TOLERATED. FALL PRECAUTIONS IN PLACE. UP TO THE BATHROOM WITH ASST/GAIT/WALKER. STEADY. INSULIN GIVEN ORDERED WITH SNACK. PT ANXIOUS ABOUT GETTING HOME. HE SAYS THAT HE CARES FOR HIS THAT HAS HEALTH ISSUES. HE NEEDS TO GET HOME TO HER. HE SAYS THAT HE HOPES THAT HE WILL BE ABLE TO TAKE CARE OF EVERYTHING LIKE HE DID BEFORE HE CAME TO THE HOSPITAL. SLEEPING WELL AT THIS TIME. SAT WNL ON NC. WILL CONTINUE TO MONITOR FREQUENTLY.
[2021-01-06 07:15] VITALS: BP 150/80
--- NOTE | 2021-01-06 14:48 | NUR ---
Cm notified from physical therapy that he will need the rollator instead of fww for dc tomorrow. [facility] will deliver prior to dc.
--- NOTE | 2021-01-06 18:19 | NUR ---
PT ALERT AND ORIENTED TIMES FOUR. VSS. PT DENIES PAIN/SOA. PT TOLERATES MEDS AND MEALS. PT WORKS WELL WITH PT/OT TODAY. PLANS FOR DISCHARGE HOME TOMORROW. PT PROGRESSING TOWARDS POC GOALS.
[2021-01-06 19:43] VITALS: BP 121/65
--- NOTE | 2021-01-07 01:15 | NUR ---
assumed care approx 1899 evening 01/06. pt sitting up in recliner in room resting and watching tv. 02 at 2l per n/c. pt alert and oriented x4, pleasant and cooperative, very hard of hearing. pt stated he was looking forward to being discharged. pt took hs meds with water tolerating well. pt appears to be sleeping soundly. bed alarm on and call light in reach. will continue to monitor.
[2021-01-07 04:20] LABS: ALBUMIN 2.3 g/dL (3.4-5.0); CREATININE 4.7 mg/dL (0.7-1.3); MAGNESIUM 1.6 mg/dL (1.8-2.4); PHOSPHORUS 4.7 mg/dL (2.5-4.9); POTASSIUM 4.4 mmol/L (3.5-5.1); TOTAL BILIRUBIN 0.4 mg/dL (0.2-1.0); TOTAL PROTEIN 4.7 g/dL (6.4-8.2)
[2021-01-07 06:37] VITALS: BP 139/84
[2021-01-07 07:15] VITALS: BP 131/75
[2021-01-07] MEDS ORDERED: FOLIC ACID1 MG PO ×2 (08:33→10:21)
[2021-01-07] MEDS ORDERED: VITAMIN B-12500 MCG PO ×3 (08:33→10:21)
[2021-01-07] MEDS ORDERED: VITAMIN D350 MC3 PO ×3 (08:50→10:21)
--- NOTE | 2021-01-07 09:14 | NUR ---
Left message for [facility], bayron zhen home today, need to know if they got insurance auth for him to start tomorrow at 5 am dialysis. [facility] h[facility] set up. rollator delivered by [facility]. Will cont following as needed for dc needs.
[2021-01-07 09:16] VITALS: BP 131/75
[2021-01-07 09:55] VITALS: BP 131/75
--- NOTE | 2021-01-07 09:55 | NUR ---
PT SITTING IN BED. PT GOING HOME TODAY. PT TOOK MEDS WITHOUT ANY ISSUES THIS AM. PT HAS DIALYSIS CATH TO RT CHEST. PT LUNGS CLEAR, AND ON ROOM AIR. PT HAS OXYGEN ON 2L NC. PT DENIES ANY PAIN. PT VOIDS PER URINAL. LINDA BYRNES WAS IN ROOM TALKING ABOUT MEDS FOR D/C.
[2021-01-07] MEDS ORDERED: NEBULIZER MISCELL ×2 (10:05→10:21)
[2021-01-07] MEDS ORDERED: CLONIDINE HCL0.3 M3 PO (10:09)
[2021-01-07] MEDS ORDERED: HYDRALAZINE 5050 MG PO (10:09)
[2021-01-07] MEDS ORDERED: IMDUR 60 MG TAB60 M1 PO (10:09)
[2021-01-07] MEDS ORDERED: IPRAT-ALBUT 0.5-3 ML INH ×3 (10:09→11:48)
[2021-01-07] MEDS ORDERED: TORSEMIDE20 MG PO (10:09)
[2021-01-07] MEDS ORDERED: PULMICORT0.5 MG/2 M INH ×2 (10:21→11:48)
[2021-01-07] MEDS ORDERED: MAGNESIUM400 MG PO (10:21)
--- NOTE | 2021-01-07 14:10 | NUR ---
DISCHARGE NOTE: Pt to discharge home today. [facility]ANDNI faxed discharge ppwk to [facility] and spoke with Leilani in intake. Confirmed info was received. Start of care planned for , 01/09. CHANDNI faxed d/c ppwk to [facility]. Left voice message to notify of pt's discharge. [facility] clinic is only open on . No additional discharge needs identified at this time. Case mgmt is availble to assist should needs arise.
--- NOTE | 2021-01-07 17:01 | NUR ---
PT LEFT WITH SON VIA W/C. PT ABLE TO WHEEL SELF OUT TO ELEVATOR AND STAND-BY ASSISTED TO CAR WITH STAFF. PT VERBALY UNDERSTOOD D/C ORDERS AND KNOWS ABOUT NEEDING TO BE AT DIALYSIS AT 0515 TOMMORROW AM.
--- NOTE | 2021-01-17 13:42 | PLAN ---
[facility] [place] [address] REHAB UNIT PLAN OF CARE Name: SHIVA BARRON [place] Room #: 510-P [facility] IN ..#: [id number] Admission: 12/27/20 Attend Phys: Anton Quezada MD Discharge: 01/07/21 Date of : 33 Report #: [id number] THIS REPORT FOR: cc: Tomer Silverio MD, Brian MD Smithson,Anton Pete MD ~ DATE OF SERVICE: 12/30/2020 PROGRESS NOTE AND OVERALL PLAN OF CARE HISTORY OF PRESENT ILLNESS: The patient was seen on the inpatient rehabilitation ross. He was in no distress. Temperature 97.4, pulse 78, respirations 20, blood pressure 157/68. He is pleasant. He is on nasal prong O2 and notes he was on 3 liters nasal prong O2 premorbidly. Denies any specific shortness of breath. He was originally admitted from [facility] for a non-ST elevation IA and found to have an acute exacerbation of CHF along with acute renal insufficiency. He has generalized debilitation. He is motivated to improve his overall strength and endurance. He has no focal calf swelling. Strength of his upper and lower extremities are probably a grade 4- to 3+. Transfers are contact guard with gait min assist 300 feet without a device. In occupational therapy, upper body dressing, supervision with lower body dressing with min assist. Speech notes dysphagia and he is on a mechanical soft with nectar thickened liquid diet. ASSESSMENT: 1. Medical complexity with generalized debilitation. 2. Non-ST elevation myocardial infarction. 3. Acute exacerbation of congestive heart failure with ejection fraction of 40% and flash pulmonary edema. 4. Moderate ischemic cardiomyopathy. 5. Anemia. 6. Chronic kidney disease, stage V. 7. Chronic obstructive pulmonary disease, baseline 3 liters nasal cannula O2. 8. Hypertension. 9. Hyperlipidemia. PLAN: The overall plan of care is based on the pre-admission screen and information garnered from therapy assessments. 1. Estimated length of stay is probably around 7 days. 2. Medical prognosis is reasonably good. 3. Anticipated interventions includes the interdisciplinary acute inpatient rehabilitation program. 4. Anticipated functional outcomes would be for the patient to become modified independent with transfers, mobility, ADLs and to improve as far as swallowing issues, so that he can return back to the home setting. 5. Discharge destination would be back to the [place] [address] REHAB UNIT PLAN OF CARE Name: SHIVA BARRON Room #: 510-P [facility] [place] [facility]#: [id number] Admission: 12/27/20 Attend Phys: Anton Quezada MD Discharge: 01/07/21 Date of : 33 Report #: [id number] home with his in a house. 6. Expected therapy by discipline includes PT, OT and speech 1 hour per day each 5 days a week throughout the duration of the acute inpatient rehabilitation stay. ADDENDUM: The patient's prognosis for significant practical improvement within a reasonable period of time appears good. Given the patient's complex medical condition and risk of further medical complication, rehabilitation services could not be safely provided at a lower level of care such as a senior care facility. <ELECTRONICALLY SIGNED> By: Anton Quezada MD 01/17/21 [id number] Anton Quezada MD /nt
== END 2021-01-07 17:00 | disposition home health service (06) | DRG 947 ==
PROVIDERS: Hospitalist; Internal Medicine; Internal Medicine Nephrology; Nurse Practitioner; Nurse Practitioner Family; ADMIT Physical Medicine & Rehabilitation; ATTEND Physical Medicine & Rehabilitation
DX: R53.81 Other malaise (principal); I21.4 Non-ST elevation (NSTEMI) myocardial infarction; J96.01 Acute respiratory failure with hypoxia; N18.5 Chronic kidney disease, stage 5; I13.2 Hypertensive heart and chronic kidney disease with heart failure and with stage 5 chronic kidney disease, or end stage renal disease; E44.0 Moderate protein-calorie malnutrition; R13.10 Dysphagia, unspecified; I50.9 Heart failure, unspecified; I25.5 Ischemic cardiomyopathy; D64.9 Anemia, unspecified; J44.9 Chronic obstructive pulmonary disease, unspecified; E78.5 Hyperlipidemia, unspecified; I48.91 Unspecified atrial fibrillation; M10.9 Gout, unspecified; E87.5 Hyperkalemia; M19.90 Unspecified osteoarthritis, unspecified site; F01.50 Vascular dementia, unspecified severity, without behavioral disturbance, psychotic disturbance, mood disturbance, and anxiety; D69.6 Thrombocytopenia, unspecified; I25.10 Atherosclerotic heart disease of native coronary artery without angina pectoris; Z88.8 Allergy status to other drugs, medicaments and biological substances; Z95.5 Presence of coronary angioplasty implant and graft; Z68.22 Body mass index [BMI] 22.0-22.9, adult; Z79.82 Long term (current) use of aspirin; Z79.899 Other long term (current) drug therapy; Z99.2 Dependence on renal dialysis
CPT/HCPCS: 10112; 32100